=== PATIENT | female | born 1980 | race Two or more races ===

== ENCOUNTER 2018-12-15 13:07 | Emergency (ER) | payer OTHER ==
[~2018-12-15] VITALS: Ht 157.5 cm; Wt 95.3 kg
[2018-12-15] MEDS ORDERED: SYNTHROID50 MCG PO (13:25)
[2018-12-15] MEDS ORDERED: ZANTAC 7575 MG PO (13:25)
[2018-12-15] MEDS ORDERED: LOSARTAN POTASS50 MG PO (13:25)
[2018-12-15] MEDS ORDERED: DICY20TA PO (13:25)
== END 2018-12-15 19:55 | disposition home or self-care (01) ==
LOC: ER 13:07
DX: N20.0 Calculus of kidney (principal); K52.9 Noninfective gastroenteritis and colitis, unspecified

== ENCOUNTER 2018-12-30 10:03 | Emergency (ER) | payer OTHER ==
[~2018-12-30] VITALS: Ht 157.5 cm; Wt 98.9 kg
[~2018-12-30 10:03] MED LIST: DICY20TA PO; LOSARTAN POTASS50 MG PO; SYNTHROID50 MCG PO; ZANTAC 7575 MG PO
[2018-12-30] MEDS ORDERED: ORPHENADRINE C100 MG PO (12:55)
[2018-12-30] MEDS ORDERED: MEDROLPACK PO (12:55)
== END 2018-12-30 20:22 | disposition home or self-care (01) ==
LOC: ER 10:03
DX: K62.89 Other specified diseases of anus and rectum (principal)

== ENCOUNTER 2019-01-02 08:00 | Day surgery (SDC) | payer OTHER ==
[~2019-01-02] VITALS: Ht 157.5 cm; Wt 98.9 kg
[~2019-01-02 08:00] MED LIST changes: +MEDROLPACK PO; +ORPHENADRINE C100 MG PO
[2019-01-02] MEDS ORDERED: PERCOCET 5-3251 EACH PO (10:52)
[2019-01-02] MEDS ORDERED: NEURONTIN300 MG PO (10:52)
[2019-01-02] MEDS ORDERED: RECTICARE30 GM TOP (10:53)
== END 2019-01-02 13:00 | disposition home or self-care (01) ==
LOC: EDSTATUS 08:00 → CIR.AMB 08:00 → SEC-K 09:29 → O/R 09:29 → CIR.AMB 13:00
DX: K60.3 Anal fistula (principal); K60.1 Chronic anal fissure; K64.4 Residual hemorrhoidal skin tags